=== PATIENT | male | born 1970 | race Caucasian/White ===

== ENCOUNTER 2017-11-26 22:20 | Emergency (ER) | payer OTHER ==
[~2017-11-26] VITALS: Ht 198.1 cm; Wt 111.1 kg
[~2017-11-26 22:20] MED LIST: BUPR150ER PO; IBUP800 PO; LISI5 PO; METPHE27ER PO; OMEP20ER PO; OXYACE5T PO; RXOXYACE PO
[2017-11-27] MEDS ORDERED: Robaxin500 MG PO (01:09)
== END 2017-11-27 01:27 | disposition home or self-care (01) ==
LOC: ER 22:20
DX: G43.909 Migraine, unspecified, not intractable, without status migrainosus (principal); M54.2 Cervicalgia; I10 Essential (primary) hypertension; Z88.0 Allergy status to penicillin; Z88.5 Allergy status to narcotic agent; Z91.030 Bee allergy status; Z79.899 Other long term (current) drug therapy
CPT/HCPCS: J1885; Q0163

== ENCOUNTER 2019-05-26 13:45 | Day surgery (SDC) | payer OTHER ==
[~2019-05-26] VITALS: Ht 198.1 cm; Wt 104.3 kg
[~2019-05-26 13:45] MED LIST changes: +IBUP600 PO; +Prinivil10 MG PO; +Robaxin500 MG PO
--- NOTE | 2019-05-26 16:22 | NUR ---
05/26/19 1622 Monica Freeman PT RESTING IN RECLINER WITH FAMILY AT CHAIRSIDE. PAIN IS NOW 4/. HE HAS HAD A FEW COOKIES AND I WILL GIVE HIM HIS FIRST PARIKH OF ORAL PAIN MEDICATION PER ORDERS. VSS.
== END 2019-05-26 17:00 | disposition home or self-care (01) ==
LOC: ORSCSDS 13:45
PROVIDERS: Orthopaedic Surgery
PROC: 0SBC4ZZ Excision of Right Knee Joint, Percutaneous Endoscopic Approach (ICD-10-PCS; principal; 2019-05-26 15:00)
DX: S83.241A Other tear of medial meniscus, current injury, right knee, initial encounter (principal); M94.261 Chondromalacia, right knee; I10 Essential (primary) hypertension; K21.9 Gastro-esophageal reflux disease without esophagitis; Z79.899 Other long term (current) drug therapy
CPT/HCPCS: A9270-GY; J1100; J2250; J2405; J2704; J3010; J3370; J7120

== ENCOUNTER → 2020-07-10 | Outpatient (CLI) | payer OTHER | END | disposition home or self-care (01) | LOC: LAB SHORT 11:10 → LAB 11:10 | DX: Z20.828 Contact with and (suspected) exposure to other viral communicable diseases (principal) | CPT/HCPCS: U0003 ==

== ENCOUNTER 2023-01-19 11:14 | Day surgery (SDC) | payer OTHER ==
[~2023-01-19] VITALS: Ht 198.1 cm; Wt 115.0 kg
[2023-01-19] MEDS ORDERED: Inderal60 MG (11:36)
[2023-01-19 14:11] VITALS: BP 111/73
== END 2023-01-19 13:56 | disposition home or self-care (01) ==
LOC: ORSCSDS 11:14
PROVIDERS: Student in an Organized Health Care Education/Training Program
PROC: 0DBH8ZX Excision of Cecum, Via Natural or Artificial Opening Endoscopic, Diagnostic (ICD-10-PCS; principal; 2023-01-19 12:45)
PROC: 0DB78ZX Excision of Stomach, Pylorus, Via Natural or Artificial Opening Endoscopic, Diagnostic (ICD-10-PCS; principal; 2023-01-19 12:45)
PROC: 0DB48ZX Excision of Esophagogastric Junction, Via Natural or Artificial Opening Endoscopic, Diagnostic (ICD-10-PCS; principal; 2023-01-19 12:45)
DX: K21.00 Gastro-esophageal reflux disease with esophagitis, without bleeding (principal); Z12.11 Encounter for screening for malignant neoplasm of colon; K31.7 Polyp of stomach and duodenum; D12.0 Benign neoplasm of cecum; Z86.010 Personal history of colon polyps; I10 Essential (primary) hypertension; Z79.899 Other long term (current) drug therapy
CPT/HCPCS: 88305; J0461; J2001; J2405; J2704; J7120; Q9968

== ENCOUNTER 2023-01-26 15:00 | Emergency (ER) | payer OTHER ==
[~2023-01-26] VITALS: Ht 198.1 cm; Wt 112.9 kg
[~2023-01-26 15:00] MED LIST changes: +Inderal60 MG
[2023-01-26 15:09] VITALS: BP 125/97
[2023-01-26 16:05] LABS: Influenza A, PCR NEGATIVE (NEGATIVE); Influenza B, PCR NEGATIVE (NEGATIVE); Resp Syncytial Virus, PCR NEGATIVE (NEGATIVE); SARS-Cov-2 (COVID-19) PCR, MMC NEGATIVE (NEGATIVE)
[2023-01-26] MEDS ORDERED: ONDA4ODT MM (16:23)
== END 2023-01-26 16:15 | disposition home or self-care (01) ==
LOC: ER 15:00
PROVIDERS: Physician Assistant
DX: R11.2 Nausea with vomiting, unspecified (principal); I10 Essential (primary) hypertension; Z88.0 Allergy status to penicillin; Z88.5 Allergy status to narcotic agent; Z91.030 Bee allergy status; Z79.899 Other long term (current) drug therapy; Z20.822 Contact with and (suspected) exposure to COVID-19
CPT/HCPCS: 0241U; A9270

== ENCOUNTER 2024-07-12 17:16 | Emergency (ER) | payer OTHER ==
[~2024-07-12] VITALS: Ht 198.1 cm; Wt 115.7 kg
[~2024-07-12 17:16] MED LIST changes: +ONDA4ODT MM
[2024-07-12 17:27] VITALS: BP 122/78
[2024-07-12] MEDS ORDERED: Cleocin HCl150 MG PO (17:35)
== END 2024-07-12 17:18 | disposition home or self-care (01) ==
LOC: ER 17:16
DX: K13.79 Other lesions of oral mucosa (principal); I10 Essential (primary) hypertension; Z79.899 Other long term (current) drug therapy; Z88.0 Allergy status to penicillin; Z88.5 Allergy status to narcotic agent; Z91.030 Bee allergy status
CPT/HCPCS: 99282

== ENCOUNTER 2025-06-26 14:38 | Emergency (ER) | payer OTHER ==
[~2025-06-26] VITALS: Ht 198.1 cm; Wt 104.3 kg
[~2025-06-26 14:38] MED LIST changes: +Cleocin HCl150 MG PO
[2025-06-26 15:10] VITALS: BP 106/83
[2025-06-26] MEDS ORDERED: Ketorolac Tromethamine 15mg Vial IV ONE (15:15)
[2025-06-26 15:33] LABS: BASOPHILS ABSOLUTE AUTO 0.03 K/mm3 (0.00-0.23); BASOPHILS PERCENT AUTO 0 % (0-2); EOSINOPHILS ABSOLUTE AUTO 0.08 K/mm3 (0.00-0.68); EOSINOPHILS PERCENT AUTO 1 % (0-6); Hematocrit 40.2 % (37.0-53.0); Hemoglobin 14.3 g/dL (13.5-17.5); IMMATURE GRAN ABSOLUTE AUTO 0.02 K/mm3 (0.00-0.10); IMMATURE GRAN PERCENT AUTO 0 % (0-1); LYMPHOCYTES ABSOLUTE AUTO 3.17 K/mm3 (0.84-5.20); LYMPHOCYTES PERCENT AUTO 41 % (21-46); MONOCYTES ABSOLUTE AUTO 0.52 K/mm3 (0.16-1.47); MONOCYTES PERCENT AUTO 7 % (4-13); Mean Corpuscular HGB Conc 35.6 g/dL (31.5-36.5); Mean Corpuscular Volume 86 fL (80-100); NEUTROPHILS ABSOLUTE AUTO 3.91 K/mm3 (1.96-9.15); NEUTROPHILS PERCENT AUTO 51 % (41-73); NRBC ABSOLUTE 0.00 K/mm3 (0.00-0.02); NRBC Auto 0.0 /100 WBC (0.0-0.2); Platelet Count 232 K/mm3 (150-400); RDW Coefficient Variation 12.4 % (11.7-14.2); RDW Standard Deviation 38.5 fL (35.1-46.3)
[2025-06-26 15:55] LABS: Alanine Aminotransfer (ALT/SGP 38.0 U/L (12-78); Albumin, Blood 3.9 g/dL (3.4-5.0); Albumin/Globulin Ratio 1.1 (0.8-1.8); Anion Gap 4.0 mmol/L (3-11); Aspartate Aminotrans (AST/SGOT 23.0 U/L (12-37); Bilirubin, Total 0.6 mg/dL (0.1-1.0); Blood Urea Nitrogen 11.0 mg/dL (8-24); CO2, Blood 29.0 mmol/L (21-32); Calcium, Blood 9.1 mg/dL (8.5-10.1); Chloride, Blood 108.0 mmol/L (98-108); Creatinine, Blood 0.91 mg/dL (0.60-1.20); Globulin, Blood 3.4 g/dL (2.2-4.0); Glucose, Blood 122.0 mg/dL (70-99); Potassium, Blood 4.2 mmol/L (3.5-5.5); Sodium, Blood 137.0 mmol/L (136-145); Total Protein, Blood 7.3 g/dL (6.4-8.2)
== END 2025-06-26 17:51 | disposition home or self-care (01) ==
LOC: ER 14:38
PROVIDERS: Emergency Medicine
DX: M54.2 Cervicalgia (principal); I10 Essential (primary) hypertension; Z98.890 Other specified postprocedural states; Z88.0 Allergy status to penicillin; Z88.5 Allergy status to narcotic agent; Z91.030 Bee allergy status; Z79.899 Other long term (current) drug therapy
CPT/HCPCS: 70491; 80053; 85025; 96374-59; 99284-25; J1885; Q9967